=== PATIENT | female | born 1965 | race Caucasian/White ===

== ENCOUNTER 2016-08-22 22:14 | Emergency (ER) | payer OTHER ==
[~2016-08-22] VITALS: Ht 170.2 cm; Wt 54.5 kg
[2016-08-22 22:35] VITALS: BP 135/82; PULSE 82; RESP 16; TEMP 97.8; O2SAT 97
--- NOTE | 2016-08-22 22:36 | PD ---
HPI Chief Complaint: Psychiatric Symptoms Time Seen by Provider: 22:33 Travel History International Travel<30 days: No Contact w/Intl Traveler<30days: No History of Present Illness HPI Patient comes in under police escort under her [employer] act for intoxication. Patient states she has a history of anxiety is not sure why the police brought her here. Patient denies any medical complaints at this time. Denies any chest pain, shortness of breath, fevers, abdominal pain, nausea, or vomiting. PFSH Past Medical History Anxiety: Yes Social History Alcohol Use: Yes Tobacco Use: Yes Review of Systems Except as stated in HPI: all other systems reviewed are Neg Physical Exam Narrative GENERAL: Well-developed, well nourished, in no acute distress, and non-ill appearing. Tearful. SKIN: Focused skin assessment warm and dry. HEAD: Atraumatic. Normocephalic. EYES: Pupils equal and round. EOMI. No scleral icterus. No injection or drainage. ENT: No nasal bleeding or discharge. Mucous membranes pink and moist. NECK: Trachea midline. Supple. No nuclear rigidity. CARDIOVASCULAR: Regular rate and rhythm. No murmur appreciated. RESPIRATORY: No accessory muscle use. No respiratory distress. Clear to auscultation. Breath sounds equal bilaterally. MUSCULOSKELETAL: No obvious deformities. No clubbing. No cyanosis. No edema. Full range of motion. NEUROLOGICAL: Awake and alert. No obvious cranial nerve deficits. Motor grossly within normal limits. Slightly slurring her speech. Data Data Orders Complete Blood Count With Diff (08/22/16 22:32) Comprehensive Metabolic Panel (08/22/16 22:32) Urinalysis - C+S If Indicated (08/22/16 22:32) Drug Screen, Random Urine (08/22/16 22:32) Alcohol (Ethanol) (08/22/16 22:32) Salicylates (Aspirin) (08/22/16 22:32) Tylenol (Acetaminophen) (08/22/16 22:32) MDM Medical Decision Making Medical Screen Exam Complete: Yes Emergency Medical Condition: Yes Differential Diagnosis Alcohol intoxication, electrolyte abnormality, substance abuse, other Narrative Course Patient was seen and examined. Initial laboratory studies were ordered. Patient was signed out to Dr. Rivera at the end of my shift. Please see her documentation for final diagnosis and disposition. Tolu Vasquez August 22, 2016 22:36
--- NOTE | 2016-08-22 22:59 | PD ---
Physical Exam Narrative General: The patient is a well-developed well-nourished female in no acute distress. Head and Neck exam: Head is normocephalic atraumatic. Eyes: EOMI, pupils are equal round and reactive to light. Nose: Midline septum with pink mucous membranes Mouth: Dentition unremarkable. Moist mucus membranes. Posterior oropharynx is not erythematous. No tonsillar hypertrophy. Uvula midline. Airway patent. Neck: No palpable lymphadenopathy. No nuchal rigidity. No thyromegaly. Cardiovascular: Regular rate and rhythm without murmurs, gallops, or rubs. Lungs: Clear to auscultation bilaterally. No wheezes, rhonchi, or rales. Abdomen: Soft, without tenderness to palpation in all 4 quadrants of the abdomen. No guarding, rebound, or rigidity. Normal bowel sounds are audible. Extremities: No clubbing, cyanosis, or edema. 2+ pulses in all 4 extremities. Neurologic Exam: Cranial nerves 2-12 were intact on exam. Strength is 5/5 in all 4 extremities. No sensory deficits noted. The patient has slurred speech with an odor of alcohol about her. She is oriented to person, and place, however not time or situation Skin Exam: No rash noted. Intact skin that is warm and dry. Data Data Last Documented VS Vital Signs Date Time Temp Pulse Resp B/P Pulse Ox O2 Delivery O2 Flow Rate FiO2 08/23/16 07:45 83 18 119/66 98 Room Air 08/22/16 22:35 97.8 Orders Complete Blood Count With Diff (08/22/16 22:32) Comprehensive Metabolic Panel (08/22/16 22:32) Urinalysis - C+S If Indicated (08/22/16 22:32) Drug Screen, Random Urine (08/22/16 22:32) Alcohol (Ethanol) (08/22/16 22:32) Salicylates (Aspirin) (08/22/16 22:32) Tylenol (Acetaminophen) (08/22/16 22:32) Labs Laboratory Tests Test 08/22/16 22:50 White Blood Count 12.0 TH/MM3 Red Blood Count 4.57 MIL/MM3 Hemoglobin 14.2 GM/DL Hematocrit 41.5 % Mean Corpuscular Volume 90.8 FL Mean Corpuscular Hemoglobin 31.2 PG Mean Corpuscular Hemoglobin 34.3 % Concent Red Cell Distribution Width 13.6 % Platelet Count 320 TH/MM3 Mean Platelet Volume 8.2 FL Neutrophils (%) (Auto) 35.6 % Lymphocytes (%) (Auto) 53.5 % Monocytes (%) (Auto) 8.0 % Eosinophils (%) (Auto) 2.2 % Basophils (%) (Auto) 0.7 % Neutrophils # (Auto) 4.3 TH/MM3 Lymphocytes # (Auto) 6.4 TH/MM3 Monocytes # (Auto) 1.0 TH/MM3 Eosinophils # (Auto) 0.3 TH/MM3 Basophils # (Auto) 0.1 TH/MM3 CBC Comment AUTO DIFF Differential Total Cells 100 Counted Neutrophils % (Manual) 38 % Lymphocytes % 51 % Monocytes % 7 % Eosinophils % 2 % Basophils % 2 % Neutrophils # (Manual) 4.6 TH/MM3 Differential Comment FINAL DIFF MANUAL Atypical Lymphocytes % Smudge Cells PRESENT Platelet Estimate NORMAL Platelet Morphology Comment NORMAL Red Cell Morphology Comment NORMAL Urine Color LIGHT-YELLOW Urine Turbidity CLEAR Urine pH 5.0 Urine Specific Spring 1.008 Urine Protein NEG mg/dL Urine Glucose (UA) NEG mg/dL Urine Ketones NEG mg/dL Urine Occult Blood NEG Urine Nitrite NEG Urine Bilirubin NEG Urine Urobilinogen LESS THAN 2.0 MG/DL Urine Leukocyte Esterase NEG Urine RBC LESS THAN 1 /hpf Urine WBC 1 /hpf Urine Squamous Epithelial <1 /hpf Cells Microscopic Urinalysis Comment CULT NOT INDICATED Sodium Level 143 MEQ/L Potassium Level 4.2 MEQ/L Chloride Level 108 MEQ/L Carbon Dioxide Level 27.3 MEQ/L Anion Gap 8 MEQ/L Blood Urea Nitrogen 11 MG/DL Creatinine 0.59 MG/DL Estimat Glomerular Filtration 107 ML/MIN Rate Random Glucose 99 MG/DL Calcium Level 8.8 MG/DL Total Bilirubin 0.2 MG/DL Aspartate Amino Transf 63 U/L (AST/SGOT) Alanine Aminotransferase 54 U/L (ALT/SGPT) Alkaline Phosphatase 114 U/L Total Protein 8.6 GM/DL Albumin 3.8 GM/DL Salicylates Level 3.0 MG/DL Urine Opiates Screen NEG Acetaminophen Level 6.9 MCG/ML Urine Barbiturates Screen NEG Urine Amphetamines Screen NEG Urine Benzodiazepines Screen NEG Urine Cocaine Screen NEG Urine Cannabinoids Screen NEG Ethyl Alcohol Level 350 MG/DL [facility] Medical Record Reviewed: Yes Supervised Visit with DIONE: No Differential Diagnosis Alcohol intoxication, versus other substance intoxication Narrative Course During the course of the patients emergency department visit, the patients history, examination, and differential diagnosis were reviewed with the patient. The patient had IV access obtained and blood work sent for analysis. The patient was initially evaluated by Tolu. Please see his complete history and physical. The patient's case was checked out to me at the conclusion of his shift. The patients laboratory studies were reviewed and remarkable for a white count of 12, hemoglobin 14.2, platelets 320, lymphocytes 53.5, CMP is remarkable for chloride of 108, AST 63, ALT 54, urinalysis is unremarkable, urine drug screen is negative, acetaminophen 6.9, salicylate 3.0, alcohol level CCCL. The patient will be observed in the emergency department until she has improvement in her mentation and is able to walk without assistance. The Patient's alcohol level improved and the patient was increasingly awake and alert. The patient will be discharged home. The patient is resting comfortably and feels better, is alert and in no distress. The patients results and examination findings were discussed with the patient. The repeat examination is unremarkable and benign. The history, exam, diagnostic testing, and current condition do not suggest any significant pathology to warrant further testing, continued ED treatment, admission, or surgical evaluation at this point. The vital signs have been stable. The patient does not have uncontrollable pain, intractable vomiting, or other significant symptoms. The patient's condition is stable and appropriate for discharge. The patient will pursue further outpatient evaluation with a primary care physician or other designated or consulting physician as indicated in the discharge instructions. The patient expressed understanding and was agreeable with this plan. Diagnosis Primary Impression: Altered mental status Qualified Code: R41.0 - Disorientation Additional Impression: Alcohol intoxication Qualified Code: F10.129 - Alcohol intoxication, with unspecified complication Referrals: Primary Care Physician 3 days Patient Instructions: Alcohol Intoxication (ED), General Instructions Med/Other Pt SpecificInfo: No Change to Meds Scripts No Active Prescriptions or Reported Meds Disposition: 01 DISCHARGE HOME Condition: Stable Yumiko Rivera MD August 22, 2016 22:59
[2016-08-22 23:07] LABS: AUTOMATED NEUTROPHIL # 4.3 TH/MM3 (1.8-7.7); BASOPHIL # 0.1 TH/MM3 (0-0.2); BASOPHIL % 0.7 % (0.0-2.0); EOSINOPHIL # 0.3 TH/MM3 (0-0.4); EOSINOPHIL % 2.2 % (0.0-4.0); HEMATOCRIT 41.5 % (35.0-46.0); LYMPH % 53.5 % (9.0-44.0); LYMPHOCYTE # 6.4 TH/MM3 (1.0-4.8); MEAN CELL VOLUME 90.8 FL (80.0-100.0); MEAN CORPUSCULAR HEMOGLOBIN 31.2 PG (27.0-34.0); MEAN CORPUSCULAR HGB CONC 34.3 % (32.0-36.0); NEUT % 35.6 % (16.0-70.0); PLATELET COUNT 320 TH/MM3 (150-450); RED BLOOD COUNT 4.57 MIL/MM3 (4.00-5.30); RED CELL DISTRIBUTION WIDTH 13.6 % (11.6-17.2)
[2016-08-22 23:11] LABS: BLOOD, URINE NEG (NEG); GLUCOSE,URINE NEG (NEG); HEMO FLAGS AUTO DIFF; KETONE, URINE NEG (NEG); NITRITE,URINE NEG (NEG); SQUAMOUS EPITHELIAL CELL URINE <1 /hpf (0-5); URINE COLOR LIGHT-YELLOW (YELLW/STRAW)
[2016-08-22 23:15] LABS: AMPHETAMINE, URINE NEG (NEG); BARBITURATES, URINE NEG (NEG); COCAINE, URINE NEG (NEG)
[2016-08-22 23:31] LABS: COMMENT (UR) CULT NOT INDICATED; CULTURE IF INDICATED CULT NOT INDICATED
[2016-08-22 23:42] LABS: ACETAMINOPHEN 6.9 MCG/ML (10.0-30.0); ALKALINE PHOSPHATASE 114 U/L (45-117); ALT (GPT) 54 U/L (10-53); ANION GAP 8 MEQ/L (5-15); AST (GOT) 63 U/L (15-37); BASOPHILS 2 % (0-2); BICARBONATE 27.3 MEQ/L (21.0-32.0); BLOOD UREA NITROGEN 11 MG/DL (7-18); CHLORIDE 108 MEQ/L (98-107); EOSINOPHILS 2 % (0-4); GLOMERULAR FILTRATION RATE 107 ML/MIN (>89); NEUTROPHIL # MANUAL DIFF 4.6 TH/MM3 (1.8-7.7); PLATELET ESTIMATE SMEAR NORMAL (NORMAL); POLYS (SEG NEUTROPHILS) 38 % (16-70); POTASSIUM 4.2 MEQ/L (3.5-5.1); SCAN/DIFF FINAL DIFF MANUAL; SODIUM (NA) 143 MEQ/L (136-145); TOTAL BILIRUBIN ADULT 0.2 MG/DL (0.2-1.0); WBC DIFF SAMPLE 100
[2016-08-22 23:43] LABS: PLATELET MORPHOLOGY NORMAL (NORMAL); SMUDGE CELLS PRESENT PRESENT
[2016-08-23 02:08] VITALS: BP 109/56; PULSE 81; RESP 18; O2SAT 98
[2016-08-23 07:45] VITALS: BP 119/66; PULSE 83; RESP 18; O2SAT 98
== END 2016-08-23 09:06 | disposition home or self-care (01) ==
LOC: NEPE 22:14 → NEPD 08-23 09:06
DX: R41.0 Disorientation, unspecified (principal); F10.129 Alcohol abuse with intoxication, unspecified; Z72.0 Tobacco use; Z86.59 Personal history of other mental and behavioral disorders
CPT/HCPCS: 80053; 80307; 81001; 85007; 85027; 99284